=== PATIENT | male | born 1955 | race Caucasian/White ===

== ENCOUNTER 2019-03-25 07:09 | Outpatient (CLI) | payer MEDICARE, SELFPAY ==
[2019-03-25 08:12] LABS: HCT 46.9 % (40.0-50.0); HGB 15.9 g/dL (13.5-17.5); Mean Corp. HGB Concentration 33.9 g/dL (32.0-36.0); Mean Corpuscular Hemoglobin 28.6 pg (27.0-33.0); Mean Corpuscular Volume 84.4 fL (80-95); Mean Platelet Volume 10.7 fL (8.0-11.0); Platelet Count 215 x1000/uL (130-400); RBC 5.56 m/cumm (4.50-6.00); RBC Distribution Width 14.3 % (11.8-14.1); White Blood Cell Count 6.39 k/cumm (4.4-10.8)
[2019-03-25 08:58] LABS: ALT 22 U/L (12-78); AST 15 U/L (15-37); Alkaline Phosphatase 81 U/L (46-116); Anion Gap 9.6 mmol/L (3-11); BUN 23 mg/dL (7-18); Bilirubin, Total 0.7 mg/dL (0.2-1.0); CO2 30.4 mmol/L (21.0-32.0); CREATININE 1.03 mg/dL (0.70-1.30); Chloride 101 mmol/L (98-107); Cholesterol 154 mg/dL (50-200); Glucose 122 mg/dL (70-100); HDL Cholesterol 57 mg/dL (40-60); LDL CHOLESTEROL 84 mg/dL (<100); Potassium 3.8 mmol/L (3.5-5.1); Sodium 141 mmol/L (136-145); Total Protein 6.9 g/dL (6.4-8.2); Triglyceride 42 mg/dL (30-150)
== END 2019-03-25 07:29 ==
PROVIDERS: PCP Nurse Practitioner; Visit Provider Nurse Practitioner
DX: E66.3 Overweight; I10 Essential (primary) hypertension; E78.5 Hyperlipidemia, unspecified; R73.01 Impaired fasting glucose
CPT/HCPCS: 36415; 80053; 80061; 83721; 85027

== ENCOUNTER 2020-08-23 01:19 | Outpatient (CLI) | payer MEDICARE, SELFPAY ==
[2020-08-23 16:01] LABS: ALT 21 U/L (16-63); AST 15 U/L (15-37); Albumin 4.1 g/dL (3.4-5.0); Alkaline Phosphatase 98 U/L (46-116); Anion Gap 4.7 mmol/L (3-11); BUN 16 mg/dL (7-18); Bilirubin, Total 0.7 mg/dL (0.2-1.0); CO2 31.3 mmol/L (21.0-32.0); Calcium 8.7 mg/dL (8.5-10.1); Calculated LDL 78 mg/dL (<100); Chloride 102 mmol/L (98-107); Cholesterol 149 mg/dL (<200); Glucose 90 mg/dL (74-106); HDL Cholesterol 58 mg/dL (40-60); Potassium 3.7 mmol/L (3.5-5.1); Sodium 138 mmol/L (136-145); Total Protein 6.8 g/dL (6.4-8.2); Triglyceride 67 mg/dL (<150)
== END 2020-08-23 01:39 ==
PROVIDERS: PCP Nurse Practitioner; Visit Provider Nurse Practitioner
DX: E78.5 Hyperlipidemia, unspecified (principal); I10 Essential (primary) hypertension
CPT/HCPCS: 36415; 80053; 80061

== ENCOUNTER 2021-10-24 02:12 | Outpatient (CLI) | payer MEDICARE, SELFPAY ==
[2021-10-24 15:41] LABS: ALT 22 U/L (16-63); AST 14 U/L (15-37); Albumin 4.3 g/dL (3.4-5.0); Alkaline Phosphatase 103 U/L (46-116); BUN 21 mg/dL (7-18); CREATININE 1.1 mg/dL (0.70-1.30); Calcium 9.4 mg/dL (8.5-10.1); Calculated LDL 90 mg/dL (<100); Chloride 100 mmol/L (98-107); Cholesterol 164 mg/dL (<200); Glucose 96 mg/dL (74-106); HDL Cholesterol 63 mg/dL (40-60); Potassium 3.5 mmol/L (3.5-5.1); Sodium 140 mmol/L (136-145); Total Protein 7.3 g/dL (6.4-8.2); Triglyceride 56 mg/dL (<150)
== END 2021-10-24 02:13 | disposition home or self-care (01) ==
LOC: LBO 02:12
PROVIDERS: PCP Nurse Practitioner; Visit Provider Nurse Practitioner
DX: I10 Essential (primary) hypertension; R73.01 Impaired fasting glucose
CPT/HCPCS: 36415; 80053; 80061; 83036

== ENCOUNTER 2021-11-19 09:05 | Outpatient (CLI) | payer MEDICARE, OTHER, SELFPAY ==
--- NOTE | 2021-11-19 09:00 | RT.EKG_ITS ---
APPROVED REPORT Exam: Resting ECG Reason for Exam: irregular heart rate Patient Location: O HR:84 bpm ECG Measurements Heart Rate 84 AXIS OK [id number] P [id number] QRSd 105 QRS -57 QT 393 T 64 QTc 466 Conclusion Atrial fibrillation...V-rate 71-100, irreg A-activity LAD, consider left anterior fascicular block...axis(240,-40), S>R II III aVF
== END 2021-11-19 09:06 | disposition home or self-care (01) ==
LOC: DI.KIM 09:06
PROVIDERS: PCP Nurse Practitioner; Visit Provider Nurse Practitioner
DX: I49.8 Other specified cardiac arrhythmias (principal); I48.91 Unspecified atrial fibrillation; I44.4 Left anterior fascicular block
CPT/HCPCS: 93010

== ENCOUNTER 2021-12-25 01:11 | Outpatient (CLI) | payer MEDICARE, OTHER, SELFPAY ==
--- NOTE | 2021-12-25 07:30 | DI.US_ITS ---
APPROVED REPORT EXAM: Comprehensive 2D, Doppler, and color-flow Echocardiogram Patient Location: Out-Patient Accounts Clerk: Tara Doyle RDCS (AE) Indications: New A Fib Other Information Study Quality: Adequate Conclusion Normal left ventricular wall thickness and chamber size. Estimated ejection fraction is 60 to 65%. Wall motion is normal Normal right ventricular size and systolic function Both atria are moderately dilated Sclerotic trileaflet aortic valve with trace regurgitation Mildly thickened mitral leaflets, mild mitral regurgitation Normal tricuspid valve with trace to mild regurgitation. Estimated right ventricular systolic pressu re is 29 mmHg Dilated ascending aorta measuring 4.48 cm Wall motion Left Ventricle The left ventricle is normal size. The left ventricular systolic function is normal. The left ventric ular ejection fraction is within the normal range. There is normal left ventricular wall thickness. T here is normal LV segmental wall motion. There is no ventricular septal defect visualized. LVEF is 60 -65%. Right Ventricle The right ventricle is normal size. The right ventricular systolic function is normal. The RVSP is 29 .1mmHg. Atria Left atrium is moderately dilated. Right atrium is moderately dilated. The interatrial septum is inta ct with no evidence for an atrial septal defect. Aortic Valve The Aortic valve is sclerotic. Aortic valve is trileaflet. There is no aortic valvular stenosis. Trac e aortic regurgitation. Mitral Valve Mitral valve leaflets are mildly thickened. No evidence of mitral valve stenosis. Mild mitral regurgi tation. Tricuspid Valve The tricuspid valve is normal in structure. There is no tricuspid valve stenosis. Trace to mild tricu spid regurgitation. Pulmonic Valve The pulmonary valve is normal in structure. There is no pulmonic valvular stenosis. There is no pulmo james valvular regurgitation. Great Vessels Aortic root is mildly dilated. The ascending aorta is dilated.4.48 cm Aortic arch is not well visuali zed. IVC is normal in size and collapses >50% with inspiration. Pericardium There is no pericardial effusion. 2D Dimensions IVSD d PLAX 1.21 cm M: 0.6-1.2 LV Vol A2C d MOD 130.6 mL LVPW d PLAX 1.21 cm M: 0.6 - 1.2 LV Vol A4C d MOD 122.1 mL LVID d PLAX 4.45 cm M: 4.2 - 5.8 LA vol/ BSA A2C s A-L 48.1 mL/m2 LVDs 3.00 cm M: 2.5 - 4.0 LA vol/ BSA A4C s A-L 35.1 mL/m2 Ao Root d 3.92 cm M: 3.1 - 3.7 LA Vol/ BSA Biplane s A-L 42.5 mL/m2 RA Area A4C 21.87 cm2 LA Area A4C s MOD 24.92 cm2 RA Vol/ BSA A4C s A-L 31.2 mL/m2 LA Area A2C s MOD 30.15 cm2 Ao Asc Diam d 4.48 cm M: 2.6 - 3.4 LV EF A4C MOD 59.8 % LV EF Teichholz 60.4 % LV EF A2C MOD 59.4 % LVEF (Ventura's) 58.92 % M: 52 - 72 LV EF Biplane MOD 58.9 % LV Volume 91.03 mL M: 62 - 150 SV 74.52 mL LV Volume Index 40.10 mL/m2 M: 34 - 74 SV Index 32.75 mL/m2 LV Vol Biplane MOD 126.5 mL FS 32.05 % M-Mode TAPSE 2.57 cm (M/F) >1.7 LV Diastology MV E' medial 0.127 (>0.07 m/s) MV E Vmax 1.26 (0.4-1.3 m/s) LV E/e MED 9.85 (<14) MV E' lateral 0.135 (>0.1 m/s) LV E/e LAT 9.30 (<14) MV E/E' medial 9.90 MV E/E' lateral 9.32 Aortic Valve LVOT Area 4.28 cm2 AoV Area Vmax 3.72 cm2 LVOT Vmax 1.08 m/s AoV Area/ BSA (Vmax) 1.64 cm2/m2 LVOT Mean Kenton. 0.64 m/s CRISTAL Mean Kenton. 2.97 cm2 LVOT Peak Grad 4.6 mmHg CRISTAL Mean Kenton. Index 1.30 cm2/m2 LVOT Mean Grad 2.0 mmHg AR DT 2444 msec LVOT VTI 0.190 m AR PHT 709 msec LVOT Diam s 2.30 cm AoV Vmax 1.24 m/s Velocity Ratio 0.87 AoV Mean Kenton. 0.93 m/s AoV Peak Grad 6.1 mmHg LVOT SV 81.28 mL AoV Mean Grad 3.7 mmHg AoV VTI 0.223 m AoV Area VTI 3.65 cm2 AoV Area/ BSA (VTI) 1.60 cm/m2 Mitral Valve MV DT 182 (160-240 msec) MV PHT 53 msec MV Area PHT 4.18 cm2 MV VTI 0.215 m MV Area VTI 3.78 (4.0-6.0 cm2) Pulmonary Valve PV Vmax 1.21 (0.5-1.5 m/s) RVOT Peak Gr. 2.75 mmHg PV Peak Grad 5.9 mmHg RVOT Mean Gr. 1.35 mmHg PV Mean Grad 3.0 mmHg RVOT VTI 0.143 m PV VTI 0.215 m RVOT Vmax 0.83 m/s Tricuspid Valve TR Peak Grad 26.1 mmHg TR Vmax 2.55 m/s RA Pressure 3.00 mmHg RVSP (TR) 29.1 mmHg
== END 2021-12-25 01:31 ==
PROVIDERS: PCP Nurse Practitioner; Visit Provider Nurse Practitioner
DX: I48.91 Unspecified atrial fibrillation (principal); I35.8 Other nonrheumatic aortic valve disorders; I08.1 Rheumatic disorders of both mitral and tricuspid valves; I77.810 Thoracic aortic ectasia
CPT/HCPCS: 93306; 93225

== ENCOUNTER 2021-12-25 02:20 | Outpatient (RCR) | payer MEDICARE, OTHER, SELFPAY ==
--- NOTE | 2021-12-25 11:30 | HOLTER_ITS ---
APPROVED REPORT Conclusion This was a 48-hour Holter monitor ordered for atrial fibrillation Predominant rhythm was atrial fibrillation with an average heart rate of 78. Minimum was 53, maximum 144 A total of 7 isolated premature ventricular contractions were seen There was no high-grade AV block, no pauses greater than 3 seconds No patient symptoms were reported
== END 2022-01-14 23:59 | disposition home or self-care (01) ==
LOC: RT 02:20
PROVIDERS: PCP Nurse Practitioner; Visit Provider Nurse Practitioner
DX: I48.91 Unspecified atrial fibrillation (principal); I48.92 Unspecified atrial flutter; I49.3 Ventricular premature depolarization
CPT/HCPCS: 93227; 93225; 93226

== ENCOUNTER 2022-01-10 08:56 | Outpatient (CLI) | payer MEDICARE, OTHER, SELFPAY ==
--- NOTE | 2022-01-10 08:45 | RT.EKG_ITS ---
APPROVED REPORT Exam: Resting ECG Reason for Exam: afib Patient Location: O HR:79 bpm ECG Measurements Heart Rate 79 AXIS NJ [id number] P [id number] QRSd 100 QRS -59 QT 389 T 33 QTc 447 Conclusion Atrial fibrillation...V-rate 56- 93, irreg A-activity Left anterior fascicular block...axis(240,-40), init forces inf
== END 2022-01-10 08:57 | disposition home or self-care (01) ==
LOC: DI.CARD 08:57
PROVIDERS: PCP Nurse Practitioner; Visit Provider Internal Medicine Cardiovascular Disease
DX: I48.91 Unspecified atrial fibrillation (principal); R94.31 Abnormal electrocardiogram [ECG] [EKG]; I44.4 Left anterior fascicular block
CPT/HCPCS: 93010

== ENCOUNTER → 2022-01-10 10:51 | Outpatient (BNVA) | payer MEDICARE, OTHER, SELFPAY | PROVIDERS: PCP Nurse Practitioner; Referring Provider Nurse Practitioner; Visit Provider Internal Medicine Cardiovascular Disease | DX: I10 Essential (primary) hypertension (principal); I48.91 Unspecified atrial fibrillation | CPT/HCPCS: 93005; 99203 ==

== ENCOUNTER 2022-09-09 03:01 | Outpatient (CLI) | payer MEDICARE, OTHER, SELFPAY ==
[2022-09-09 08:15] LABS: HCT 48.9 % (40.0-50.0); HGB 16.8 g/dL (13.5-17.5); MCH 28.7 pg (27.0-33.0); MCHC 34.4 % (32.0-36.0); MCV 84 fL (80-95); MPV 9.9 fL (8.0-11.0); Platelet Count 221 10^3/uL (130-400); RBC 5.85 10^6/uL (4.36-5.78); RDW 13.6 % (11.8-14.1); WBC 7.24 10^3/uL (4.4-10.8)
[2022-09-09 08:43] LABS: ALT 25 U/L (16-63); AST 19 U/L (15-37); Albumin 3.9 g/dL (3.4-5.0); Alkaline Phosphatase 116 U/L (46-116); Anion Gap 6.8 mmol/L (3-11); BUN 19 mg/dL (7-18); Bilirubin, Total 0.9 mg/dL (0.2-1.0); CO2 31.2 mmol/L (21.0-32.0); CREATININE 1.1 mg/dL (0.70-1.30); Calcium 9.3 mg/dL (8.5-10.1); Calculated LDL 74 mg/dL (<100); Chloride 104 mmol/L (98-107); Cholesterol 135 mg/dL (<200); Estimated GFR 72.67 (mL/min/1.73m2); Glucose 128 mg/dL (74-106); HDL Cholesterol 55 mg/dL (40-60); Potassium 3.4 mmol/L (3.5-5.1); Sodium 142 mmol/L (136-145); Total Protein 7.4 g/dL (6.4-8.2); Triglyceride 34 mg/dL (<150)
== END 2022-09-09 03:02 | disposition home or self-care (01) ==
LOC: LBO 03:01
PROVIDERS: PCP Nurse Practitioner; Visit Provider Nurse Practitioner
DX: E78.5 Hyperlipidemia, unspecified (principal); I10 Essential (primary) hypertension; R73.03 Prediabetes; I48.91 Unspecified atrial fibrillation
CPT/HCPCS: 36415; 80053; 80061; 85027

== ENCOUNTER → 2023-01-13 10:27 | Outpatient (BNVA) | payer MEDICARE, OTHER, SELFPAY | PROVIDERS: PCP Nurse Practitioner; Referring Provider Nurse Practitioner; Visit Provider Internal Medicine Cardiovascular Disease | DX: I48.91 Unspecified atrial fibrillation (principal); I10 Essential (primary) hypertension; Z79.01 Long term (current) use of anticoagulants | CPT/HCPCS: 99213 ==

== ENCOUNTER 2023-03-20 01:43 | Outpatient (CLI) | payer MEDICARE, OTHER, SELFPAY ==
[2023-03-20 09:45] LABS: Hemoglobin A1C 6.1 % (<5.7)
[2023-03-20 21:24] LABS: PSA, Screening 6.1 ng/mL (<=4.5)
== END 2023-03-20 01:44 | disposition home or self-care (01) ==
LOC: LBO 01:44
PROVIDERS: PCP Nurse Practitioner; Visit Provider Nurse Practitioner
DX: R97.20 Elevated prostate specific antigen [PSA] (principal); Z12.5 Encounter for screening for malignant neoplasm of prostate; R73.03 Prediabetes; I10 Essential (primary) hypertension
CPT/HCPCS: 36415; 84153; 83036

== ENCOUNTER → 2023-05-01 10:39 | Outpatient (BNVA) | payer MEDICARE, OTHER, SELFPAY | PROVIDERS: PCP Nurse Practitioner; Referring Provider Nurse Practitioner; Visit Provider Nurse Practitioner Gerontology | DX: R97.20 Elevated prostate specific antigen [PSA] (principal) | CPT/HCPCS: 99203 ==

== ENCOUNTER 2023-08-28 17:47 | Outpatient (REF) | payer MEDICARE, OTHER, SELFPAY ==
[2023-08-28 19:06] LABS: Abs Immature Grans 0.04 10^3/uL (0.0-0.06); Absolute Basophil Count 0.07 10^3/uL (0.0-0.2); Absolute Eosinophil Count 0.08 10^3/uL (0.0-0.7); Absolute Lymphocyte Count 1.61 10^3/uL (1.2-3.4); Absolute Monocyte Count 0.71 10^3/uL (0.1-0.8); Absolute Neutrophil Count 5.44 10^3/uL (1.2-6.7); Basophils % 0.9; HCT 48.2 % (40.0-50.0); HGB 16.3 g/dL (13.5-17.5); Immature Grans % 0.5; Lymphocytes % 20.3; MCH 28.1 pg (27.0-33.0); MCHC 33.8 % (32.0-36.0); MCV 83 fL (80-95); MPV 10.2 fL (8.0-11.0); Monocytes % 8.9; Neutrophils % 68.4; Platelet Count 234 10^3/uL (130-400); RBC 5.81 10^6/uL (4.36-5.78); RDW 14.1 % (11.8-14.1); RDW-SD 42.5 fL; WBC 7.95 10^3/uL (4.4-10.8)
[2023-08-28 19:24] LABS: ALT 25 U/L (16-63); AST 15 U/L (15-37); Albumin 4.2 g/dL (3.4-5.0); Alkaline Phosphatase 114 U/L (46-116); Anion Gap 9.7 mmol/L (3-11); BUN 16 mg/dL (7-18); Bilirubin, Total 0.9 mg/dL (0.2-1.0); CO2 28.3 mmol/L (21.0-32.0); CREATININE 0.9 mg/dL (0.70-1.30); Calcium 9.7 mg/dL (8.5-10.1); Calculated LDL 75 mg/dL (<100); Chloride 102 mmol/L (98-107); Cholesterol 147 mg/dL (<200); Estimated GFR 91.88 (mL/min/1.73m2); Glucose 97 mg/dL (74-106); HDL Cholesterol 63 mg/dL (40-60); Potassium 3.3 mmol/L (3.5-5.1); Sodium 140 mmol/L (136-145); Total Protein 7.3 g/dL (6.4-8.2); Triglyceride 46 mg/dL (<150)
[2023-08-28 20:28] LABS: Vitamin D 25 Total 29.6 ng/mL (30-100)
== END 2023-08-28 17:48 | disposition home or self-care (01) ==
LOC: NCHCN 17:47
PROVIDERS: Visit Provider Nurse Practitioner Family
DX: I10 Essential (primary) hypertension (principal); E78.5 Hyperlipidemia, unspecified; Z51.81 Encounter for therapeutic drug level monitoring; I48.91 Unspecified atrial fibrillation
CPT/HCPCS: 80053; 80061; 82306; 85025

== ENCOUNTER 2023-10-23 04:04 | Outpatient (CLI) | payer MEDICARE, OTHER, SELFPAY ==
[2023-10-23 22:10] LABS: PSA, Diagnostic 5.9 ng/mL (<=6.5)
== END 2023-10-23 04:05 | disposition home or self-care (01) ==
LOC: LBO 04:05
PROVIDERS: Visit Provider Nurse Practitioner Gerontology
DX: R97.20 Elevated prostate specific antigen [PSA] (principal)
CPT/HCPCS: 36415; 84153

== ENCOUNTER → 2023-10-30 15:04 | Outpatient (BNVA) | payer MEDICARE, OTHER, SELFPAY | PROVIDERS: Referring Provider Nurse Practitioner; Visit Provider Nurse Practitioner Gerontology | DX: N40.1 Benign prostatic hyperplasia with lower urinary tract symptoms (principal); R97.20 Elevated prostate specific antigen [PSA] | CPT/HCPCS: 99213 ==

== ENCOUNTER 2023-11-27 13:26 | Outpatient (REF) | payer MEDICARE, OTHER, SELFPAY ==
[2023-11-27 16:48] LABS: Hemoglobin A1C 5.7 % (<5.7)
[2023-11-27 17:12] LABS: BUN 19 mg/dL (7-18); CREATININE 1.2 mg/dL (0.70-1.30); Calcium 9.6 mg/dL (8.5-10.1); Chloride 105 mmol/L (98-107); Estimated GFR 65.06 (mL/min/1.73m2); Glucose 184 mg/dL (74-106); Sodium 141 mmol/L (136-145)
== END 2023-11-27 13:27 | disposition home or self-care (01) ==
LOC: NCHCN 13:26
PROVIDERS: Visit Provider Nurse Practitioner Family
DX: R73.03 Prediabetes (principal); I10 Essential (primary) hypertension
CPT/HCPCS: 80048; 83036

== ENCOUNTER → 2024-01-07 00:15 | Outpatient (CLI) | payer MEDICARE, OTHER, SELFPAY ==
--- NOTE | 2024-01-07 08:35 | DI.US_ITS ---
APPROVED REPORT EXAM: Comprehensive 2D, Doppler, and color-flow Echocardiogram Patient Location: Out-Patient Candy Decorator: Tara Doyle RDCS (AE) Indications: LV function, ascending aorta, HTN Other Information Study Quality: Good Conclusion Normal left ventricular wall thickness, chamber size and systolic function EF is 60%, wall motion is normal Mildly dilated left atrium There is no sigificant structural valvular disease Mildly dilated ascending aorta 3.78 cm Wall motion Left Ventricle The left ventricle is normal size. The left ventricular systolic function is normal. The left ventric ular ejection fraction is within the normal range. There is normal left ventricular wall thickness. T here is normal LV segmental wall motion. There is no ventricular septal defect visualized. LVEF is 60 %. Right Ventricle The right ventricle is normal size. The right ventricular systolic function is normal. Atria Left atrium is mildly dilated. The right atrium size is normal. The interatrial septum is intact with no evidence for an atrial septal defect. Aortic Valve Aortic valve is trileaflet. There is no aortic valvular stenosis. No aortic regurgitation is present . Mitral Valve The mitral valve is normal in structure. No evidence of mitral valve stenosis. Mild mitral regurgitat ion. Tricuspid Valve The tricuspid valve is normal in structure. There is no tricuspid valve stenosis. Mild tricuspid regu rgitation. The RVSP is 22.9 mmHg. Pulmonic Valve The pulmonary valve is normal in structure. There is no pulmonic valvular stenosis. Trace to mild pul cyn regurgitation. Great Vessels Aortic root is mildly dilated. The ascending aorta is mildly dilated. Aortic arch is normal in sylvester david. IVC is normal in size and collapses >50% with inspiration. Pericardium There is no pericardial effusion. 2D Dimensions IVSD d PLAX 1.20 cm M: 0.6-1.2 Ao Root d 4.16 cm M: 3.1 - 3.7 LVPW d PLAX 1.21 cm M: 0.6 - 1.2 Ao Asc Diam d 3.78 cm M: 2.6 - 3.4 LVID d PLAX 4.79 cm M: 4.2 - 5.8 LVDs 3.17 cm M: 2.5 - 4.0 LV EF Teichholz 62.8 % FS 33.95 % LV EDV (Teich) 107.2 mL LV ESV (Teich) 39.9 mL M-Mode TAPSE 2.97 cm (M/F) >1.7 Auto EF LV EDV A4C 130.6 mL LV EDV A2C 125.9 mL LV EDV BP 128.7 mL LV ESV A4C 48.4 mL LV ESV A2C 53.2 mL LV ESV BP 51.2 mL LVEF(%) A4C 63.0 % LVEF(%) A2C 57.7 % LVEF(%) BP 60.2 % LV SV A4C 82.3 ml LV SV A2C 72.7 ml LV SV BP 77.5 ml LV CO A4C 7.4 L/min LV CO A2C 5.5 L/min LV CO BP 6.4 L/min HR A4C 89.56 BPM HR A2C 75.63 BPM LV EDV Index (BP) LV Strain Long Pk Overal Avg (s) 16.34 LA Volume LA Length A4C 5.8 cm LA Length A2C 6.8 cm LA Area A4C s 25.60 cm2 LA Area A2C s 29.58 cm2 LA Vol A4C A-L 95.88 mL LA Vol A2C A-L 108.72 mL LA Vol Biplane A-L 110.8 mL LA Vol/BSA A4C A-L LA Vol/BSA A2C A-L LA Vol/BSA BP A-L 49.0 mL/m2 LA Vol A4C MOD 89.1 mL LA Vol A2C MOD 102.8 mL LA Vol BP MOD 103.7 mL RA Volume RA Area A4C 18.5 cm2 RA ESV A4C (A-L) 50.0mL RA Vol/BSA A4C A-L RA Length A4C 5.8 cm RA ESV A4C (MOD) 48.4mL LV Diastology MV E' medial 0.118 (>0.07 m/s) MV E Vmax 1.19 (0.4-1.3 m/s) MV E/E' MED 10.14 (<14) MV E' lateral 0.134 (>0.1 m/s) MV E/E' LAT 8.92 (<14) MV E' Average 0.126 m/s MV E/E'(average) 9.49 Aortic Valve AoV Vmax 1.23 m/s LVOT Vmax 1.04 m/s AoV Peak Grad 6.0 mmHg LVOT Peak Grad 4.3 mmHg AoV Area (Vmax) 3.49 cm2 LVOT VTI 0.202 m AoV VTI 0.262 m LVOT Mean Grad 1.8 mmHg AoV Mean Kenton. 0.88 m/s LVOT SV 83.55 mL AoV Mean Grad 3.5 mmHg LVOT Diam s 2.25 cm AoV Area (VTI) 3.19 cm2 Velocity Ratio 0.85 Mitral Valve MV DT 217 (160-240 msec) MV Vmax TIPS 1.16 m/s MV Mean Grad 1.8 (<2mmHg) MV VTI 0.294 m Pulmonary Valve PV Vmax 0.88 (0.5-1.5 m/s) RVOT Vmax 0.74 m/s PV Peak Grad 3.1 mmHg RVOT Peak Gr. 2.2 mmHg PV Mean Kenton 0.65 m/s RVOT VTI 0.149 m PV Mean Grad 1.9 mmHg RVOT Mean Gr. 1.3 mmHg Tricuspid Valve RA Pressure 3.00 mmHg TR Vmax 2.23 m/s TV S' 0.17 m/s TR Peak Grad 19.8 mmHg RVSP (TR) 22.9 mmHg
== END ==
PROVIDERS: Visit Provider Internal Medicine Cardiovascular Disease
DX: I10 Essential (primary) hypertension (principal)
CPT/HCPCS: 93306

== ENCOUNTER 2024-01-15 10:29 | Outpatient (CLI) | payer MEDICARE, OTHER, SELFPAY ==
--- NOTE | 2024-01-15 10:30 | RT.EKG_ITS ---
APPROVED REPORT Exam: Resting ECG Reason for Exam: followup Patient Location: O HR:77 bpm ECG Measurements Heart Rate 77 AXIS SC [id number] P [id number] QRSd 102 QRS -72 QT 397 T 49 QTc 450 Conclusion Atrial fibrillation...? atrial activity Left anterior fascicular block...axis(240,-40), init forces inf Artifact in lead(s) I,II,aVR,aVL,V2
== END 2024-01-15 10:30 | disposition home or self-care (01) ==
LOC: DI.CARD 10:38
PROVIDERS: Visit Provider Internal Medicine Cardiovascular Disease
DX: I48.91 Unspecified atrial fibrillation (principal)
CPT/HCPCS: 93010

== ENCOUNTER → 2024-01-15 10:29 | Outpatient (BNVA) | payer MEDICARE, OTHER, SELFPAY | PROVIDERS: Visit Provider Internal Medicine Cardiovascular Disease | DX: I44.4 Left anterior fascicular block (principal); I48.21 Permanent atrial fibrillation; I10 Essential (primary) hypertension | CPT/HCPCS: 93005; 99213 ==

== ENCOUNTER 2024-04-22 05:03 | Outpatient (CLI) | payer MEDICARE, OTHER, SELFPAY ==
[2024-04-22 17:43] LABS: PSA, Diagnostic 6.2 ng/mL (<=6.5)
== END 2024-04-22 05:04 | disposition home or self-care (01) ==
LOC: LBO 05:04
PROVIDERS: Visit Provider Nurse Practitioner Gerontology
DX: R97.20 Elevated prostate specific antigen [PSA] (principal)
CPT/HCPCS: 36415; 84153

== ENCOUNTER 2024-08-27 19:55 | Outpatient (REF) | payer OTHER, SELFPAY ==
[2024-08-27 15:41] LABS: HCT 49.3 % (40.0-50.0); HGB 16.4 g/dL (13.5-17.5); MCH 28.5 pg (27.0-33.0); MCHC 33.3 % (32.0-36.0); MCV 86 fL (80-95); MPV 9.8 fL (8.0-11.0); Platelet Count 205 10^3/uL (130-400); RBC 5.75 10^6/uL (4.36-5.78); RDW 13.9 % (11.8-14.1); RDW-SD 43.6 fL; WBC 6.53 10^3/uL (4.4-10.8)
[2024-08-27 16:09] LABS: Anion Gap 6.2 mmol/L (3-11); BUN 25 mg/dL (7-18); CO2 29.8 mmol/L (21.0-32.0); CREATININE 1.1 mg/dL (0.70-1.30); Calcium 9.5 mg/dL (8.5-10.1); Chloride 105 mmol/L (98-107); Estimated GFR 71.77 (mL/min/1.73m2); Glucose 138 mg/dL (74-106); Potassium 4.5 mmol/L (3.5-5.1); Sodium 141 mmol/L (136-145); TSH (W/Ref FT4) 1.65 uIU/mL (0.36-3.74)
--- OUTSIDE RECORDS SUMMARY | 2024-08-27 19:57 | XMS_ITS | Encounter Summary ---
Author Organization [facility] Address [address] [place] [address] Care Team Providers Care Chemical Laboratory Scientist Name Role Phone Unavailable Primary Care Provider Unavailabl e Encounter Details Date Type Department Care Team (Late st Contact Info) Description 02/16/2008 Results Only [facility] - [facility] conversion [address] [place] [address] Jose Hsieh, DO [address] [facility] [address] [place], [place] [id number] Social History Tobacco Use Types Packs/Day Years Used Date Smoking Tobacco: Never Assessed Sex and Gender Information Value Date Recorded Sex Assigned at Not on file Gender Identity Not on file Sexual Orientation Not on file documented as of this encounter Plan of Treatment Not on file documented as of this encounter Procedures Procedure Name Priority Date/Time Associated Diagnosis Comments SURGICAL PATHOLOGY Routine 02/16/2008 0:00 EDT documented in this encounter Results * SURGICAL PATHOLOGY (02/16/2008 0:00 EDT) Pathology Report: SURGICAL PATHOLOGY REPORT Reports generated via electronic interface contain original data; however they are lacking the format of the original report. Caution should be taken when reading/interpreti ng unformatted reports. Name: ? ARIEL ROMERO ? Accession #: ? [id number] ? : ? 1955 (Age: 52) ??M ? Collect Date: ? 02/16/2008 ? Location: ? [facility] ? Receive Date: ? 02/17/2008 ? Provider: JOSE HSIEH DO Copy to: JOSTIN ARANDA MD ? Final Pathologic Diagnosis: ? Colon, ileocecal valve, biopsy: 1. ?Ileocecal valve with focal, superficial acute and chronic inflammation and surface hyperplastic changes. 2. ? No granulomas or dysplasia identified. Document reviewed and electronically signed by: Faby Vieyra MD Report ??Date: 02/19/2008 12:55 By the signature above, the attending physician certifies that he/she has personally conducted a gross and/or microscopic examination of the described specimens and rendered or confirmed the above diagnosis. Specimen(s) Received: ? Bx ileocecal valve Clinical History: ? Hx colon polyps Gross Description: ? Received in Hollande's fixative labelled Romero and bx ileocecal valve are two biopsies measuring 0.3 x 0.2 x 0.2 cm each. ??The specimens are submitted intact in one cassette. ??(Abhi Medel/[facility] End of Report STEFFANY SAEZ 02/16/2008 02/17/2008 9:2 2 EDT Jose Hsieh DO PATHOLOGY ORDER LADARIUS STEFFANY SAEZ [address] [place] [address] documented in this encounter Visit Diagnoses Not on filedocumented in this encounter
--- OUTSIDE RECORDS SUMMARY | 2024-08-27 19:57 | XMS_ITS | Encounter Summary ---
Author Organization [facility] Address [address] [place] [address] Care Team Providers Care Digital Project Manager Name Role Phone Mio Bro MD Primary Care Provider Booker claros Encounter Details Date Type Department Care Team (Latest Contact Info) Description 08/08/2015 10:33 EDT - 08/08/2015 23:59 EDT Hospital Encounter [address] [address] Unknown, Provider, Discharge Disposition: Home or Self Care Social History Tobacco Use Types Packs/Day Years Used Date Smoking Tobacco: Never Assessed Sex and Gender Information Value Date Recorded Sex Assigned at Not on file Gender Identity Not on file Sexual Orientation Not on file documented as of this encounter Discharge Disposition Disposition Code Departure Means Destination Home or Self Correction documented in this encounter Plan of Treatment Not on file documented as of this encounter Visit Diagnoses Not on filedocumented in this encounter Care Teams Digital Project Manager Relationship Specialty Start Date End Date Mio Bro MD PCP - General 06/18/13 documented as of this encounter
--- OUTSIDE RECORDS SUMMARY | 2024-08-27 19:57 | XMS_ITS | Encounter Summary ---
Author Organization [facility] Address [address] [place] [address] Care Team Providers Care Local Company Hazmat Driver Name Role Phone Unavailable Primary Care Provider Unavailabl e Encounter Details Date Type Department Care Team (Late st Contact Info) Description 12/18/2004 Results Only [facility] - Maple conversion [address] [place] [address] Jose Hsieh, DO [address] [facility] [address] [place], [place] [id number] Social History Tobacco Use Types Packs/Day Years Used Date Smoking Tobacco: Never Assessed Sex and Gender Information Value Date Recorded Sex Assigned at Not on file Gender Identity Not on file Sexual Orientation Not on file documented as of this encounter Plan of Treatment Not on file documented as of this encounter Procedures Procedure Name Priority Date/Time Associated Diagnosis Comments SURGICAL PATHOLOGY Routine 12/18/2004 0:00 EST documented in this encounter Results * SURGICAL PATHOLOGY (12/18/2004 0:00 EST) Pathology Report: SURGICAL PATHOLOGY REPORT Reports generated via electronic interface contain original data; however they are lacking the format of the original report. Caution should be taken when reading/interpreti ng unformatted reports. Name: ? ARIEL ROMERO ? Accession #: ? [id number] ? : ? 1955 (Age: 49) ??M ? Collect Date: ? 12/18/2004 ? Location: ? [facility] ? Receive Date: ? 12/18/2004 ? Provider: JOSE HSIEH DO Copy to: TAWNY FRY DO ? Final Pathologic Diagnosis: ? Colon, 40 cm, polypectomy: - Tubular adenoma. Document reviewed and electronically signed by: William Ramirez MD Report ??Date: 12/20/2004 17:34 By the signature above, the attending physician certifies that he/she has personally conducted a gross and/or microscopic examination of the described specimens and rendered or confirmed the above diagnosis. Specimen(s) Received: ? Polyp 40.0 cm Clinical History: ? Colonoscopy screening Gross Description: ? Received in Hollande's fixative labelled Romreo and polyp 40.0 cm are three clay-pink, irregular soft tissue fragments ranging from 0.2 x 0.2 x 0.2 cm to 0.6 x 0.5 x 0.4 cm. ??The specimen is entirely submitted in one cassette. ??(Jasiel Verdugo/[facility] End of Report STEFFANY SAEZ 12/18/2004 12/18/2004 14: 54 EST Jose Hsieh DO PATHOLOGY ORDER LADARIUS STEFFANY SAEZ [address] [place] [address] documented in this encounter Visit Diagnoses Not on filedocumented in this encounter
--- OUTSIDE RECORDS SUMMARY | 2024-08-27 19:57 | XMS_ITS | Encounter Summary ---
Author Organization [facility] [place] [address] [place] [address] Care Team Providers Care Trade Facilitator Name Role Phone Nafisa Donaldson Primary Care Provider [phone] Encounter Details Date Type Department Care Team (Latest Contact Info) Description 12/04/2023 Travel Social History Tobacco Use Types Packs/Day Years Used Date Smoking Tobacco: Former Sex and Gender Information Value Date Recorded Sex Assigned at Not on file Gender Identity Not on file Sexual Orientation Not on file documented as of this encounter Plan of Treatment Upcoming Encounters Date Type Department Care Team (Late st Contact Info) Description 01/24/2025 1:30 PM EDT Office Visit Dermatology at [place] [address] [place] [phone] Terrance Guadarrama MD [address], [place] [address] documented as of this encounter Visit Diagnoses Not on filedocumented in this encounter Care Teams Trade Facilitator Relationship Specialty Start Date End Date Nafisa Donaldson [address] [place] [address] PCP - General Family Medicine 12/04/23 documented as of this encounter
--- OUTSIDE RECORDS SUMMARY | 2024-08-27 19:57 | XMS_ITS | Encounter Summary ---
Author Organization [facility] [place] [address] Care Team Providers Care Residential Carpenter Name Role Phone Nafisa Donaldson Primary Care Provider [phone] Encounter Details Date Type Department Care Team (Latest Contact Info) Description 01/22/2024 Travel Social History Tobacco Use Types Packs/Day [...] 1:30 PM EDT Office Visit Dermatology at [place] [address] [place] [phone] Terrance Guadarrama MD [address], [place] [address] documented as of this encounter Visit Diagnoses Not on filedocumented in this encounter Care Teams Residential Carpenter Relationship Specialty Start Date End Date Nafisa Donaldson [address] [place] [address] PCP - General Family Medicine 12/04/23 documented as of this encounter
--- OUTSIDE RECORDS SUMMARY | 2024-08-27 19:57 | XMS_ITS | Clinical Summary ---
Author Organization [facility] Address [address] [place] [address] Care Team Providers Care Modeling Director Name Role Phone Mio Bro MD Primary Care Provider U saleemailneftali Encounters Date Type Department Care Team Description 08/27/2024 Lab Requisition [facility] Pathology & Laboratory Medicine - [address] [address] Outr Resulting Lab, Provider from Last 3 Months Social History Tobacco Use Types Packs/Day Years Used Date Smoking Tobacco: Never Assessed Interpersonal Safety Answer Date Record ed Physically Hurt Never 06/18/2020 Verbally Threaten Not on file 06/18/2020 Sex and Gender Information Value Date Recorded Sex Assigned at Not on file Gender Identity Not on file Sexual Orientation Not on file Plan of Treatment Health Maintenance Due Date Last Done Comments Hepatitis C Screen 1955 RSV Immunization ( o r 60+ Years) (1 - 1-dose 60+ series) 2013 Fall Risk Screening 2018 COVID-19 Vaccine (2022-24 season) 2023 Care Teams Modeling Director Relationship Specialty Start Date End Date Mio Bro MD PCP - General 06/18/13
--- OUTSIDE RECORDS SUMMARY | 2024-08-27 19:57 | XMS_ITS | Encounter Summary ---
Author Organization [facility] [place] [address] Care Team Providers Care Senior Producer Name Role Phone Nafisa Donaldson Primary Care Provider [phone] Encounter Details Date Type Department Care Team (Latest Contact Info) Description 12/04/2023 10:22 PM EST - 12/04/2023 11:59 PM EST Hospital Encounter [place] [phone] Discharge Disposition: Home Social History Tobacco Use Types Packs/Day Years Used Date Smoking Tobacco: Former Sex and Gender Information Value Date Recorded Sex Assigned at Not on file Gender Identity Not on file Sexual Orientation Not on file documented as of this encounter Medications at Time of Discharge Medication Sig Dispensed Refills Start Date End Date amLODIPine (Norvasc) 10 mg tablet Take 1 tablet by mouth daily. cholecalciferol, Vitamin D3, 50 mcg (2,000 unit) Capsule Take 1 capsule by mouth daily. potassium chloride ER (Klor-Con M) 20 mEq ER micro-encapsulated crystal tablet Take 20 mEq by mouth daily. rivaroxaban (Xarelto) 20 mg tablet Take 1 tablet by mouth daily. 08/28/2023 enalapriL (Vasotec) 20 mg tablet Take 40 mg by mouth daily. hydroCHLOROthiazide (Hydrodiuril) 50 mg tablet Take 50 mg by mouth daily. Vitamins-Lipotropics (LIPO-FLAVONOID PLUS) 200-100 mg Tab Take by mouth. lisinopril-hydrochloroth iazide (PRINZIDE;ZESTORETIC) 10-12.5 mg per tablet Take 1 tablet by mouth daily. aspirin 81 mg EC tablet Take 81 mg by mouth daily. 07/26/2024 documented as of this encounter Plan of Treatment Upcoming Encounters Date Type Department Care Team (Late st Contact Info) Description 01/24/2025 1:30 PM EDT Office Visit Dermatology at [place] [address] [place] [address] Terrance Guadarrama MD [address], [place] [address] documented as of this encounter Procedures Procedure Name Priority Date/Time Associated Diagnosis Comments SURGICAL PATHOLOGY REPORT Routine 12/04/2023 10:15 AM EST documented in this encounter Results * Surgical Pathology Report (12/04/2023 10:15 AM EST) Final Diagnosis [id number] ? Location: [facility] The signing pathologist has (i) examined the relevant preparation(s) for the specimen(s) and (ii) rendered or confirmed the diagnosis(es). . ?Surgical Pathology DIAGNOSIS Right nasal trigone, skin shave biopsy D&C: - ??Basal cell carcinoma, nodular type, present at the peripheral and deep specimen edges Electronically signed by: ?Fouzia KONG, Demond Ahmadi Verified: ??12/15/2023 10:48 ??Dermatopatholog ist Performed at: ??-[facility] [place] Dept. of Pathology, [place] [id number] [employer] Furn[employer] Operator: Kandy Guallpa MD, FCAP, ??CLIA Certificate: [id number] SPECIMEN(S) SUBMITTED A - R nasal trigone, shave D&C x 3 CLINICAL INFORMATION Pearly nodule; BCC/SCC SPECIMEN PROCESSING A - Labeled/Fixative: Patient demographics, formalin. Quantity/Size: ??Single, 1.5 x 0.4 x 0.4 cm. Tissue Description: Shave of a yellow-white, hyperkeratotic and crusted skin nodule. Sections/Processi ng: Inked, serially sectioned and entirely submitted in 2 cassettes as follows: ?A1: ??Tips ?A2: ??Body ??sns 12/15/2023 10:48 AM EST [facility] SPECIMEN FROM SKIN / Unknown 12/04/2023 10:15 AM EST 12/04/2023 10:15 AM EST Terrance Guadarrama MD PATHOLOGY/CYTOLOGY O RDERAREED [facility] [place] [address] [facility] [place] [address] documented in this encounter Visit Diagnoses Not on filedocumented in this encounter Care Teams Senior Producer Relationship Specialty Start Date End Date Nafisa Donaldson [address] [place] [address] PCP - General Family Medicine 12/04/23 documented as of this encounter
--- OUTSIDE RECORDS SUMMARY | 2024-08-27 19:57 | XMS_ITS | Encounter Summary ---
Author Organization [facility] Address [address] [place] [address] Care Team Providers Care Needle Polisher Name Role Phone Mio Bro MD Primary Care Provider Booker claros Encounter Details Date Type Department Care Team (Late st Contact Info) Description 05/15/2018 Results Only [facility]- [facility] [phone] Silverio Fry, DO [address] [place] [address] Social History Tobacco Use Types Packs/Day Years Used Date Smoking Tobacco: Never Assessed Sex and Gender Information Value Date Recorded Sex Assigned at Not on file Gender Identity Not on file Sexual Orientation Not on file documented as of this encounter Plan of Treatment Not on file documented as of this encounter Procedures Procedure Name Priority Date/Time Associated Diagnosis Comments SURGICAL PATHOLOGY Routine 05/15/2018 18 :11 EDT documented in this encounter Results * SURGICAL PATHOLOGY (05/15/2018 18:11 EDT) Pathology Report: SURGICAL PATHOLOGY REPORT Reports generated via electronic interface contain original data; however they are lacking the format of the original report. Caution should be taken when reading/interpret ing unformatted reports. Name: ? ARIEL ROMERO JR ? Accession #: ? [id number] ? : ? 1955 (Age: 63) ??M ? Collect Date: ? 05/15/2018 ? Location: ? [facility] ? Receive Date: ? 05/15/2018 ? Provider: SILVERIO FRY DO Copy to: DEANN LINO PILE DRIVING TECHNICIAN ? Final Pathologic Diagnosis: RECTUM, POLYP, BIOPSY: - ??Fragments of hyperplastic polyp. Document reviewed and electronically signed by: LAURA CASTILLO MD Report ??Date: 05/19/2018 10:53 By the signature above, the attending physician certifies that he/she has personally conducted a gross and/or microscopic examination of the described specimens and rendered or confirmed the above diagnosis. Specimen(s) Received: Rectal polyp Clinical History: Colorectal screening; clinical diagnosis code: ??Z12.11 Gross Description: ? Received in formalin labelled with proper patient identification (initials H, F) and 1 rectal polyp is a single pink-clay polypoid tissue (0.4 x 0.3 x 0.3 cm). The margin is inked blue. The specimen entirely submitted in 1. Dr. Corrigan 05/16/2018 10:43 AM End of Report [facility] 05/15/2018 18:1 1 EDT 05/15/2018 18:11 EDT Silverio Fry DO PATHOLOGY ORDERABLES [facility] [address] [place] [address] documented in this encounter Visit Diagnoses Not on filedocumented in this encounter Care Teams Needle Polisher Relationship Specialty Start Date End Date Mio Bro MD PCP - General 06/18/13 documented as of this encounter
--- OUTSIDE RECORDS SUMMARY | 2024-08-27 19:57 | XMS_ITS | Encounter Summary ---
Author Organization [facility] Address [address] [facility] [place] [address] Care Team Providers Care System Planning Engineer Name Role Phone KahlilorestesdesEstee Nafisa Primary Care Provider [phone] Encounter Details Date Type Department Care Team (Late st Contact Info) Description 12/12/2023 Telephone Dermatology at [address] [address] Maite Faulkner RN Social History Tobacco Use Types Packs/Day Years Used Date Smoking Tobacco: Former Sex and Gender Information Value Date Recorded Sex Assigned at Not on file Gender Identity Not on file Sexual Orientation Not on file documented as of this encounter Miscellaneous Notes * Telephone Encounter - Maite Faulkner RN - 12/12/2023 11:15 AM EST Patient called to see how he was doing since 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 Patientstated that the first night his nose was painful but since he has been doing well. He has his daughter changing the dressing and she is an RN and stated that it is healing well with out any signs or symptoms of infection. He stated that he has been staying home relaxing. Patient does have another pr ocedure scheduled for 12/22/2023 and reminded him of his appointment. documented in this encounter Plan of Treatment Upcoming Encounters Date Type Department Care Team (Late st Contact Info) Description 01/24/2025 1:30 PM EDT Office Visit Dermatology at [address] [place] [address] Terrance Guadarrama MD [address], [place] [address] documented as of this encounter Visit Diagnoses Not on filedocumented in this encounter Care Teams System Planning Engineer Relationship Specialty Start Date End Date Nafisa Donaldson [address] [place] [address] PCP - General Family Medicine 12/04/23 documented as of this encounter
--- OUTSIDE RECORDS SUMMARY | 2024-08-27 19:57 | XMS_ITS | Encounter Summary ---
Author Organization [facility] Address [address] [facility] [place] [address] Care Team Providers Care Director Business Development Name Role Phone Nafisa Donaldson Primary Care Provider [phone] Reason for Visit * Reason Comments Follow-up Encounter Details Date Type Department Care Team (Late st Contact Info) Description 12/25/2023 2:15 PM EST Procedure visit Dermatology at [address] [place] [address] Terrance Guadarrama MD [address] [facility], [facility]ULO A DERMATOLOGY [place], [place] [id number] Rhinophyma Social History Tobacco Use Types Packs/Day Years Used Date Smoking Tobacco: Former Sex and Gender Information Value Date Recorded Sex Assigned at Not on file Gender Identity Not on file Sexual Orientation Not on file documented as of this encounter Progress Notes * Terrance Guadarrama MD - 12/25/2023 2:15 PM EST Images from the original note were not included. Problem: Rhinophyma Filiberto follows up for a second in a series of treatment sessions for his rhinophyma. 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 The left nasal ala treated last visit is healing nicely. The photographs below show 2 before and 2 after pictures And after Assessment plan: Rhinophyma, extensive 1. Today site was anesthetized on the left nasal ala and left and using the cutting current and at times mixed current with a grounding pad, the area was sculpted back down to normal close to normal contours on the nasal tip and right side of his nose. 2. Patient tolerated well 3. Return to clinic in 1 month for repeat check 4. Wound care instructions and supplies given CC: Vicky LARSON documented in this encounter Plan of Treatment Upcoming Encounters Date Type Department Care Team (Late st Contact Info) Description 01/24/2025 1:30 PM EDT Office Visit Dermatology at [place] [address] [facility] [address] Terrance Guadarrama MD [address] [facility] [place] [address] documented as of this encounter Visit Diagnoses Diagnosis Rhinophyma Rosacea documented in this encounter Care Teams Director Business Development Relationship Specialty Start Date End Date Nafisa Donaldson [address] [place] [address] PCP - General Family Medicine 12/04/23 documented as of this encounter
--- OUTSIDE RECORDS SUMMARY | 2024-08-27 19:57 | XMS_ITS | Encounter Summary ---
Author Organization [facility] [place] [address] Care Team Providers Care Single Stroke Preformer Name Role Phone Nafisa Donaldson Primary Care Provider [phone] Reason for Visit * Reason Comments Follow-up 1 mo Encounter Details Date Type Department Care Team (Late st Contact Info) Description 01/22/2024 3:45 PM EST Office Visit Dermatology at [address] [phone] Terrance Guadarrama MD [address] [facility], [place] [address] Rhinophyma; History of basal cell carcinoma; History of SCC (squamous cell carcinoma) of skin Social History Tobacco Use Types Packs/Day Years Used Date Smoking Tobacco: Former Sex and Gender Information Value Date Recorded Sex Assigned at Not on file Gender Identity Not on file Sexual Orientation Not on file documented as of this encounter Progress Notes * Terrance Guadarrama MD - 01/22/2024 3:45 PM EST Images from the original note were not included. Problems: 1. Eyelid lesion of concern. 2. History of BCCA, right lateral canthus, October 2012. 3. 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 Things have healed beautifully and is very pleased. Physical examination reveals a pleasant 76-year-old gentleman whose extensive rhinophyma is healed beautifully. The BCC treatments sites present on the right nasal trigone is also healed well.. He has no evidence of SCC or BCC at the current at the above-noted prior treatment sites. Assessment plan: Rhinophyma nose 1. Wonderful healing following elective surgery. Patient and I both very pleased and I will follow along with him 2. Patient is currently on doxycycline prescribed by Nafisa Donaldson. Continue this 100 mg a day to prevent recurrence of rhinophyma. 3. Follow-up in 6 months for repeat check History of BCCA/SCCA's 1. Return to clinic in another 6 months for repeat check CC: Nafisa Donaldson. WEIGHT CALLER documented in this encounter Plan of Treatment Upcoming Encounters Date Type Department Care Team (Late st Contact Info) Description 01/24/2025 1:30 PM EDT Office Visit Dermatology at [place] [address] [place] [address] Terrance Guadarrama MD [address], [place] [address] documented as of this encounter Visit Diagnoses Diagnosis Rhinophyma Rosacea History of basal cell carcinoma Personal history of other malignant neoplasm of skin History of SCC (squamous cell carcinoma) of skin Personal history of other malignant neoplasm of skin documented in this encounter Care Teams Single Stroke Preformer Relationship Specialty Start Date End Date Nafisa Donaldson [address] [place] [address] PCP - General Family Medicine 12/04/23 documented as of this encounter
--- OUTSIDE RECORDS SUMMARY | 2024-08-27 19:57 | XMS_ITS | Encounter Summary ---
Author Organization [facility] Address One [facility] [place] [address] Care Team Providers Care Public Finance Specialist Name Role Phone KahlilorestesdesEstee Nafisa Primary Care Provider Encounter Details Date Type Department Care Team (Late st Contact Info) Description 12/15/2023 Telephone Dermatology at [address] [address] Maite Faulkner RN Social History Tobacco Use Types Packs/Day Years Used Date Smoking Tobacco: Former Sex and Gender Information Value Date Recorded Sex Assigned at Not on file Gender Identity Not on file Sexual Orientation Not on file documented as of this encounter Miscellaneous Notes * Telephone Encounter - Maite Faulkner RN - 12/15/2023 1:53 PM EST Patient called and informed of his pathology results. Patient had a shave biopsy D&C right nasal trigone on 12/04/2023. Diagnosis: Basal cell carcinoma. Per Dr. Guadarrama's recommendation no further treatment is needed and patient to follow up for his next scheduled treatment of his Rhinophyma on 12/22/2023. Patient informed and stated that he understood. Reminded patient of his appointment on 12/22/2023. documented in this encounter Plan of Treatment Upcoming Encounters Date Type Department Care Team (Late st Contact Info) Description 01/24/2025 1:30 PM EDT Office Visit Dermatology at [address] [address] Terrance Guadarrama MD [address], SHAMEKA A DERMATOLOGY [place], [place] [phone] documented as of this encounter Visit Diagnoses Not on filedocumented in this encounter Care Teams Public Finance Specialist Relationship Specialty Start Date End Date Nafisa Donaldson [address] [place] [address] PCP - General Family Medicine 12/04/23 documented as of this encounter
--- OUTSIDE RECORDS SUMMARY | 2024-08-27 19:57 | XMS_ITS | Encounter Summary ---
Author Organization [facility] Address [address] [place] [address] Care Team Providers Care Business Strategy Manager Name Role Phone Mio Aranda MD Primary Care Provider Booker claros Encounter Details Date Type Department Care Team (Late st Contact Info) Description 08/08/2015 Results Only [facility]- [facility] [phone] Nash Davey MD [address] [place] [phone] Social History Tobacco Use Types Packs/Day Years Used Date Smoking Tobacco: Never Assessed Sex and Gender Information Value Date Recorded Sex Assigned at Not on file Gender Identity Not on file Sexual Orientation Not on file documented as of this encounter Plan of Treatment Not on file documented as of this encounter Procedures Procedure Name Priority Date/Time Associated Diagnosis Comments SURGICAL PATHOLOGY Routine 08/08/2015 20 :22 EDT documented in this encounter Results * SURGICAL PATHOLOGY (08/08/2015 20:22 EDT) Pathology Report: SURGICAL PATHOLOGY REPORT Reports generated via electronic interface contain original data; however they are lacking the format of the original report. Caution should be taken when reading/interpret ing unformatted reports. Name: ? ARIEL ROMERO JR ? Accession #: ? [id number] ? : ? 1955 (Age: 60) ??M ? Collect Date: ? 08/08/2015 ? Location: ? [facility] ? Receive Date: ? 08/08/2015 ? Provider: NASH DAVEY MD Copy to: MIO ARANDA MD ? Final Pathologic Diagnosis: SOFT TISSUE OF LEFT FORHEAD, EXCISION: - Mature adipose tissue consistent with lipoma. - No evidence of malignancy. Document reviewed and electronically signed by: STAN FORTE MD Report ??Date: 08/10/2015 15:16 By the signature above, the attending physician certifies that he/she has personally conducted a gross and/or microscopic examination of the described specimens and rendered or confirmed the above diagnosis. Specimen(s) Received: Lipoma left forehead Clinical History: Lipoma Gross Description: ? Received in formalin labelled with proper patient identification (initials H, F) and lipoma left forehead is an unoriented portion of ovoid yellow-brown adipose tissue (41.4 g, 6.9 x 6.4 x 1.6 cm). The outer surface has a smooth, thin, translucent, and intact capsule. The outer surface is inked blue. The cut surface is yellow, homogenous, and glistening, with focal hemorrhage at the periphery. Stud Dairy Cattle Farmer sections are submitted as [address] Morris 08/09/2015 9:43 AM End of Report [facility] 08/08/2015 20:2 2 EDT 08/08/2015 20:22 EDT Nash Davey MD PATHOLOGY ORDERA REED [facility] [address] [place] [address] documented in this encounter Visit Diagnoses Not on filedocumented in this encounter Care Teams Business Strategy Manager Relationship Specialty Start Date End Date Mio Aranda MD PCP - General 06/18/13 documented as of this encounter
--- OUTSIDE RECORDS SUMMARY | 2024-08-27 19:57 | XMS_ITS | Encounter Summary ---
Author Organization [facility] [place] [address] Care Team Providers Care Flake Drier Name Role Phone Nafisa Donaldson Primary Care Provider [phone] Reason for Visit * Reason Comments Procedure Encounter Details Date Type Department Care Team (Late st Contact Info) Description 12/09/2023 2:15 PM EST Procedure visit Dermatology at [address] [place] [address] Terrance Guadarrama MD [address] [facility] [place] [address] Rhinophyma; History of basal cell carcinoma; History of SCC (squamous cell carcinoma) of skin Social History Tobacco Use Types Packs/Day Years Used Date Smoking Tobacco: Former Sex and Gender Information Value Date Recorded Sex Assigned at Not on file Gender Identity Not on file Sexual Orientation Not on file documented as of this encounter Progress Notes * Terrance Guadarrama MD - 12/09/2023 2:15 PM EST Problem: Rhinophyma Filiberto follows up for first in a series of treatment sessions for his rhinophyma. Physical examination again reveals extensive rhinophyma from both nasal ala and from the nasal tip Assessment plan: Rhinophyma, extensive 1. Today site was anesthetized on the left nasal ala and left and using the cutting current and at times admit mixed current with a grounding pad, the area was sculpted back down to normal close to normal contours on the left side of his nose. 2. Patient tolerated well 3. Return to clinic for a second session in the next 2 weeks or so. 4. Wound care instructions and supplies given CC: Vicky LARSON documented in this encounter Plan of Treatment Upcoming Encounters Date Type Department Care Team (Late st Contact Info) Description 01/24/2025 1:30 PM EDT Office Visit Dermatology at [place] [address] [place] [address] Terrance Guadarrama MD [address] [facility] [place] [address] documented as of this encounter Visit Diagnoses Diagnosis Rhinophyma Rosacea History of basal cell carcinoma Personal history of other malignant neoplasm of skin History of SCC (squamous cell carcinoma) of skin Personal history of other malignant neoplasm of skin documented in this encounter Care Teams Flake Drier Relationship Specialty Start Date End Date Nafisa Donaldson [address] [place] [address] PCP - General Family Medicine 12/04/23 documented as of this encounter
--- OUTSIDE RECORDS SUMMARY | 2024-08-27 19:57 | XMS_ITS | Referral Summary ---
Author Organization [facility] Address [address] [place] [address] Care Team Providers Care Winding Lathe Operator Name Role Phone Mio Bro MD Primary Care Provider U navailable Encounters Date Type Department Care Team Description 08/27/2024 Lab Requisition [facility] Pathology & Laboratory Medicine - [address] [address] Outr Resulting Lab, Provider from Last 3 Months Social History Tobacco Use Types Packs/Day Years Used Date Smoking Tobacco: Never Assessed Interpersonal Safety Answer Date Record ed Physically Hurt Never 06/18/2020 Verbally Threaten Not on file 06/18/2020 Sex and Gender Information Value Date Recorded Sex Assigned at Not on file Gender Identity Not on file Sexual Orientation Not on file Plan of Treatment Not on file Care Teams Winding Lathe Operator Relationship Specialty Start Date End Date Mio Bro MD PCP - General 06/18/13
--- OUTSIDE RECORDS SUMMARY | 2024-08-27 19:57 | XMS_ITS | Encounter Summary ---
Author Organization [facility] [place] [address] Care Team Providers Care Special Class Welder Name Role Phone Nafisa Donaldson Primary Care Provider [phone] Encounter Details Date Type Department Care Team (Latest Contact Info) Description 07/26/2024 Travel Social History Tobacco Use Types Packs/Day [...] 1:30 PM EDT Office Visit Dermatology at [place] [address] [place] [phone] Terrance Guadarrama MD [address] [place] [address] documented as of this encounter Visit Diagnoses Not on filedocumented in this encounter Care Teams Special Class Welder Relationship Specialty Start Date End Date Nafisa Donaldson [address] [place] [address] PCP - General Family Medicine 12/04/23 documented as of this encounter
--- OUTSIDE RECORDS SUMMARY | 2024-08-27 19:57 | XMS_ITS | Encounter Summary ---
Author Organization [facility] [place] [address] Care Team Providers Care Mechanical Systems Designer Name Role Phone Mio Bro MD Primary Care Provider + Reason for Visit * Reason Comments Skin Lesion Encounter Details Date Type Department Care Team (Late st Contact Info) Description 04/16/2012 4:15 PM EDT Office Visit Dermatology [address] [place] [address] Terrance Guadarrama MD [address], [place] [address] Basal cell carcinoma (Primary Dx) Social History Tobacco Use Types Packs/Day Years Used Date Smoking Tobacco: Former Sex and Gender Information Value Date Recorded Sex Assigned at Not on file Gender Identity Not on file Sexual Orientation Not on file documented as of this encounter Progress Notes * Terrance Guadarrama MD - 04/16/2012 5:22 PM EDT Clinical impression: BCCA, right lateral canthus. Size is 1 cm. Deep suture is 4-0 Vicryl. Surface suture is 5-0 Ethilon. Followup will be in one week for suture removal and biopsy results. Indications for surgery, possible adverse outcomes, and activity restrictions discussed. Informed verbal consent was obtained. The skin surface was prepared with 4% chlorhexidine and draped in the usual sterile manner. Local anesthesia with 1% lidocaine, 1:100,000 epinephrine, and 0.1 mEq per mL of bicarbonate. Using a #15 blade and 3-mm margins, an elliptical excision was carried out around the lesion. Undermining performed peripherally. Hemostasis with electrodesiccation. A layered closure performed with specimen to Pathology. Wound dressed, wound care reviewed. End length suture line was 4.5 cm. Followup in seven days for suture removal by Dr. Guadarrama in [facility]. Copy: Mio Bro M.D. Pathology Addendum per [facility] 04/22/12 : Basal Cell Carcinoma, margins clear documented in this encounter Procedure Notes * Provider, Scanning - 04/24/2012 1:30 PM EDTAssociated Order(s): SCAN DOC: SURGICAL PATHOLOGY documented in this encounter Plan of Treatment Upcoming Encounters Date Type Department Care Team (Late st Contact Info) Description 01/24/2025 1:30 PM EDT Office Visit Dermatology at [place] [address] [place] [address] Terrance Guadarrama MD [address] [place] [address] RD, [place] [address] documented as of this encounter Procedures Procedure Name Priority Date/Time Associated Diagnosis Comments SURGICAL PATHOLOGY SCAN 04/24/2012 1:30 PM EDT documented in this encounter Results * SCAN DOC: SURGICAL PATHOLOGY (04/24/2012 1:30 PM EDT) Narrative 04/24/2012 1:30 PM EDT Procedure Note Provider, Scanning - 04/24/2012 1:30 PM EDT Scanning Provider MEDIA MGR SCAN EXT O RDR/RSLT documented in this encounter Visit Diagnoses Diagnosis Basal cell carcinoma- Primary Basal cell carcinoma of skin, site unspecified documented in this encounter Care Teams Mechanical Systems Designer Relationship Specialty Start Date End Date Mio Bro MD [address] [place] [address] PCP - General 10/09/10 08/26/17 documented as of this encounter
--- OUTSIDE RECORDS SUMMARY | 2024-08-27 19:57 | XMS_ITS | Encounter Summary ---
Author Organization [facility] Address [address] [place] [address] Care Team Providers Care Membership Sales Advisor Name Role Phone Mio Bro MD Primary Care Provider Booker claros Encounter Details Date Type Department Care Team (Latest Contact Info) Description 05/15/2018 12:15 EDT - 05/15/2018 23:59 EDT Hospital Encounter [address] [address] Unknown, Provider, Discharge Disposition: Home or Self Care Social History Tobacco Use Types Packs/Day Years Used Date Smoking Tobacco: Never Assessed Sex and Gender Information Value Date Recorded Sex Assigned at Not on file Gender Identity Not on file Sexual Orientation Not on file documented as of this encounter Discharge Disposition Disposition Code Departure Means Destination Home or Self Intermediate documented in this encounter Plan of Treatment Not on file documented as of this encounter Visit Diagnoses Not on filedocumented in this encounter Care Teams Membership Sales Advisor Relationship Specialty Start Date End Date Mio Bro MD PCP - General 06/18/13 documented as of this encounter
--- OUTSIDE RECORDS SUMMARY | 2024-08-27 19:57 | XMS_ITS | Encounter Summary ---
Author Organization [facility] Address [address] [place] [address] Care Team Providers Care Production Team Manager Name Role Phone Mio Bro MD Primary Care Provider Booker claros Encounter Details Date Type Department Care Team (Late st Contact Info) Description 04/22/2024 Lab Requisition [facility] Pathology & Laboratory Medicine - [facility] [address] [place] [address] Outr Resulting Lab, Provider Social History Tobacco Use Types Packs/Day Years [...] Procedure Name Priority Date/Time Associated Diagnosis Comments PSA TOTAL, DIAGNOSTIC Routine 04/22/2024 8:30 EDT documented in this encounter Results * PSA TOTAL, DIAGNOSTIC (04/22/2024 8:30 EDT) PSA 6.2 <=6.5 ng/mL 04/22/2024 17:38 EDT [facility] Blood VENOUS BLOOD / Unknown 04/22/2024 8:30 EDT 04/22/2024 16:50 EDT Narrative [facility] - 04/22/2024 17:38 EDT NOTE: Serum PSA concentration should not be interpreted as absolute evidence for the presence or absence of malignant disease. Assayed on Siemens ADVIA Centaur XPT using chemiluminescent technology.??Values obtained by using different assay methods cannot be used interchangeably. Provider Outr Resulting Lab CHEMISTRY & BLOOD GAS ORDERABLES [facility] [address] [place] [address] documented in this encounter Visit Diagnoses Not on filedocumented in this encounter Care Teams Production Team Manager Relationship Specialty Start Date End Date Mio Bro MD PCP - General 06/18/13 documented as of this encounter
--- OUTSIDE RECORDS SUMMARY | 2024-08-27 19:57 | XMS_ITS | Encounter Summary ---
Author Organization [facility] Address [address] [place] [address] Care Team Providers Care Manager Learning Name Role Phone Mio Bro MD Primary Care Provider Booker claros Encounter Details Date Type Department Care Team (Late st Contact Info) Description 03/20/2023 Lab Requisition [facility] Pathology & Laboratory Medicine - [facility] [address] [place] [address] Outr Resulting Lab, Provider Social History Tobacco [...] Associated Diagnosis Comments PSA TOTAL, DIAGNOSTIC Routine 03/20/2023 9:10 EDT documented in this encounter Results * (ABNORMAL) PSA TOTAL, DIAGNOSTIC (03/20/2023 9:10 EDT) PSA 6.1(H) <=4.5 ng/mL 03/20/2023 21:21 EDT [facility] Blood VENOUS BLOOD / Unknown 03/20/2023 9:10 EDT 03/20/2023 17:24 EDT Narrative [facility] - 03/20/2023 21:21 EDT NOTE: Serum PSA concentration should not be interpreted as absolute evidence for the presence or absence of malignant disease. Assayed on Siemens ADVIA Centaur XPT using chemiluminescent technology.??Values obtained by using different assay methods cannot be used interchangeably. Provider Outr Resulting Lab CHEMISTRY & BLOOD GAS ORDERABLES [facility] [address] [place] [address] documented in this encounter Visit Diagnoses Not on filedocumented in this encounter Care Teams Manager Learning Relationship Specialty Start Date End Date Mio Bro MD PCP - General 06/18/13 documented as of this encounter
--- OUTSIDE RECORDS SUMMARY | 2024-08-27 19:57 | XMS_ITS | Encounter Summary ---
Author Organization [facility] [place] [address] Care Team Providers Care Ed Tech Name Role Phone Mio Bro MD Primary Care Provider + Reason for Visit * Reason Comments Skin Check Encounter Details Date Type Department Care Team (Late st Contact Info) Description 07/16/2013 9:30 AM EDT Office Visit Dermatology [address] [place] [address] Terrance Guadarrama MD [address], [place] [address] Squamous cell carcinoma (Primary Dx); History of basal cell carcinoma Social History Tobacco Use Types Packs/Day Years Used Date Smoking Tobacco: Former Sex and Gender Information Value Date Recorded Sex Assigned at Not on file Gender Identity Not on file Sexual Orientation Not on file documented as of this encounter Progress Notes * Terrance Guadarrama MD - 07/16/2013 9:58 AM EDT Problems: 1. Left cheek lesion. 2. History of BCCA, right lateral canthus, October 2012. Filiberto follows up after last being seen a year ago in April. He is referred back today by Dr. Bro regarding a lesion now on the left cheek. 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 Physical examination reveals a pleasant, 58-year-old gentleman who has a hyperkeratotic, 1-cm nodule on the left cheek with some slight underlying induration. It is concerning for an early SCCA. He has a single actinic on the right malar prominence. There is no evidence of recurrent BCCA on the right cheek; in fact, the surgical scar is very difficult to find. Assessment and Plan: 1. 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 a. After obtaining informed patient consent, the site was anesthetized and removed with shave C and D. b. Triple antibiotic ointment and Band-Aid placed. Wound care instructions and supplies given. c. I recommended return to the clinic on a yearly basis for routine skin checkups. 2. Actinic keratosis, right cheek. a. LN2 times two applied to single actinic on right malar prominence. COPY: Mio Bro M.D. documented in this encounter Procedure Notes * Provider, Scanning - 07/26/2013 9:57 AM EDTAssociated Order(s): SCAN DOC: SURGICAL PATHOLOGY documented in this encounter Plan of Treatment Upcoming Encounters Date Type Department Care Team (Late st Contact Info) Description 01/24/2025 1:30 PM EDT Office Visit Dermatology at [address] [address] Terrance Guadarrama MD [address] [facility] [address] documented as of this encounter Procedures Procedure Name Priority Date/Time Associated Diagnosis Comments SURGICAL PATHOLOGY SCAN 07/26/2013 9:57 AM EDT documented in this encounter Results * SCAN DOC: SURGICAL PATHOLOGY (07/26/2013 9:57 AM EDT) Narrative 07/26/2013 9:57 AM EDT Procedure Note Provider, Scanning - 07/26/2013 9:57 AM EDT Scanning Provider MEDIA MGR SCAN EXT O RDR/RSLT documented in this encounter Visit Diagnoses Diagnosis Squamous cell carcinoma- Primary Other malignant neoplasm without specification of site History of basal cell carcinoma Personal history of other malignant neoplasm of skin documented in this encounter Care Teams Ed Tech Relationship Specialty Start Date End Date Mio Bro MD [address] [place] [address] PCP - General 10/09/10 08/26/17 documented as of this encounter
--- OUTSIDE RECORDS SUMMARY | 2024-08-27 19:57 | XMS_ITS | Encounter Summary ---
Author Organization [facility] [place] [address] [place] [address] Care Team Providers Care Industrial Engineering Name Role Phone Nafisa Donaldson Primary Care Provider [phone] Reason for Visit * Reason Comments Follow-up 6 mo Encounter Details Date Type Department Care Team (Late st Contact Info) Description 07/26/2024 2:00 PM EDT Office Visit Dermatology at [place] [address] [place] [id number] Terrance Guadarrama MD [address], [facility] A D[facility]MATOLOGY [place], [place] [id number] Rhinophyma; History of basal cell carcinoma; History of SCC (squamous cell carcinoma) of skin Social History Tobacco Use Types Packs/Day Years Used Date Smoking Tobacco: Former Sex and Gender Information Value Date Recorded Sex Assigned at Not on file Gender Identity Not on file Sexual Orientation Not on file documented as of this encounter Progress Notes * Terrance Guadarrama MD - 07/26/2024 2:00 PM EDT Problems: 1. Repeat skin checkup 2. History of BCCA, right lateral canthus, October 2012. 3. History of SCCA left cheek June 2013 4. History of BCCA left nasal trigone November 2023 5. 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 For the last 2 months he has had a stye on the right lower eyelid along the medial tarsal margin. His rhinophyma is doing well but he still has a fair amount of discharge and he has a pain kind of pressure feeling in his nose despite 100 mg of doxycycline a day. He states that he is getting a clear a yellowish discharge from the stye Physical examination reveals a pleasant 69-year-old gentleman who has a benign examination today ofthe head and the neck the chest the back the hands arms forearms thighs and calves. His rhinophyma remains well controlled and much improved after his procedure. He has an erythematous papule on the right medial tarsal margin consistent with a stye. There is no evidence of recurrent BCC in the leftnasal trigone. Assessment plan: Stye/chalazion cyst left lower medial tarsal margin 1. Recommend doubling the dose of doxycycline to 100 mg p.o. twice daily. Patient states that he has plenty at home prescribed by his PCP 2. I recommend he try this for 2 weeks and also observe its effect on the inflammation level of hisnose. Rhinophyma 1. Continue doxycycline but double dose to 100 mg p.o. twice daily as noted above 2. If this proves more efficacious reducing the discharge and painful pressure feeling in his nose would recommend continuing this twice daily dosing.. History of BCCA's 1. No evidence of recurrence 2. No new lesions of concern seen 3. Return to clinic in 6 months for repeat check. CC: Nafisa Donaldson. COMMUNITY THEATER ACTOR documented in this encounter Plan of Treatment Upcoming Encounters Date Type Department Care Team (Late st Contact Info) Description 01/24/2025 1:30 PM EDT Office Visit Dermatology at [place] [address] [facility] [place] [phone] Terrance Guadarrama MD [address] [facility], [place] [address] documented as of this encounter Visit Diagnoses Diagnosis Rhinophyma Rosacea History of basal cell carcinoma Personal history of other malignant neoplasm of skin History of SCC (squamous cell carcinoma) of skin Personal history of other malignant neoplasm of skin documented in this encounter Care Teams Industrial Engineering Relationship Specialty Start Date End Date Nafisa Donaldson [address] [place] [address] PCP - General Family Medicine 12/04/23 documented as of this encounter
--- OUTSIDE RECORDS SUMMARY | 2024-08-27 19:57 | XMS_ITS | Clinical Summary ---
Author Organization [facility] Address [address] [facility] [place] [address] Care Team Providers Care Architectural Draftsman Name Role Phone Nafisa Donaldson Primary Care Provider Allergies No known active allergies Medications Medication Sig Dispensed Refills Start Date End Date Status lisinopril-hydrochloro thiazide (PRINZIDE;ZESTORETIC) 10-12.5 mg per tablet Take 1 tablet by mouth daily. Active Vitamins-Lipotropics (LIPO-FLAVONOID PLUS) 200-100 mg Tab Take by mouth. Active amLODIPine (Norvasc) 10 mg tablet Take 1 tablet by mouth daily. Active cholecalciferol, Vitamin D3, 50 mcg (2,000 unit) Capsule Take 1 capsule by mouth daily. Active potassium chloride ER (Klor-Con M) 20 mEq ER micro-encapsulated crystal tablet Take 20 mEq by mouth daily. Active rivaroxaban (Xarelto) 20 mg tablet Take 1 tablet by mouth daily. 08/28/2023 Active enalapriL (Vasotec) 20 mg tablet Take 40 mg by mouth daily. Active hydroCHLOROthiazide (Hydrodiuril) 50 mg tablet Take 50 mg by mouth daily. Active Doxycycline Hyclate (Doryx) [address] tablet Take 100 mg by mouth daily. Active Active Problems Problem Noted Date Diagnosed Date Squamous cell carcinoma 07/16/2013 History of basal cell carcinoma 07/16/2013 Visit for suture removal 04/23/2012 Basal cell carcinoma 04/02/2012 Encounters Date Type Department Care Team Description 07/26/2024 2:00 PM EDT Office Visit Dermatology at [address] [place] [address] Terrance Guadarrama MD Rhinophyma; History of basal cell carcinoma; History of SCC (squamous cell carcinoma) of skin 07/26/2024 Travel from Last 3 Months Social History Tobacco Use Types Packs/Day Years Used Date Smoking Tobacco: Former Sex and Gender Information Value Date Recorded Sex Assigned at Not on file Gender Identity Not on file Sexual Orientation Not on file Plan of Treatment Upcoming Encounters Date Type Department Care Team (Late st Contact Info) Description 01/24/2025 1:30 PM EDT Office Visit Dermatology at [place] [address] [place] [address] Terrance Guadarrama MD [address], [place] [address] Health Maintenance Due Date Last Done Comments CT Colonography 1953 Colonoscopy 1953 Colorectal Cancer Screening 1953 FIT DNA 1953 FIT 1953 Sigmoidoscopy (10 year) with FIT yearly 1953 Sigmoidoscopy 1953 Hepatitis C Screening 1971 Lipid Screening 1971 Tetanus/Diphtheria/Pertussis Vaccines (1 - Tdap) 03/27 Zoster vaccine (1 of 2) 2003 Advance Directive 2008 AAA Screen 2018 Pneumoccocal Vaccine: 65+ (1 of 1 - PCV) 2018 Covid-19 Vaccine (1 - 2022-24 season) 2024 Influenza (Flu) vaccine (1 o f 1 - Influenza standard series) 07/18/2024 Care Teams Architectural Draftsman Relationship Specialty Start Date End Date Nafisa Donaldson [address] [place], [place] [id number] PCP - General Family Medicine 12/04/23
--- OUTSIDE RECORDS SUMMARY | 2024-08-27 19:57 | XMS_ITS | Encounter Summary ---
Author Organization [facility] [place] [address] Care Team Providers Care Recruiting Intern Name Role Phone Mio Bro MD Primary Care Provider + Reason for Visit * Reason Comments Skin Check Encounter Details Date Type Department Care Team (Late st Contact Info) Description 04/02/2012 9:30 AM EDT Office Visit Dermatology [address] [place] [address] Terrance Guadarrama MD [address], [place] [address] Basal cell carcinoma (Primary Dx) Social History Tobacco Use Types Packs/Day Years Used Date Smoking Tobacco: Former Sex and Gender Information Value Date Recorded Sex Assigned at Not on file Gender Identity Not on file Sexual Orientation Not on file documented as of this encounter Progress Notes * Terrance Guadarrama MD - 04/02/2012 10:04 AM EDT Problem: Right inferolateral canthal lesion. Freedom is a 57-year-old gentleman who is referred today by Dr. Bro for evaluation of a roughly das-bra-e-half year history of a growing pearly nodule on the right face. Occasionally it bleeds. 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 He runs this with his son. His medications are limited and include only lisinopril/hydrochlorothiazide and a baby aspirin a day. Physical examination reveals a pleasant 57-year-old gentleman who has a 1-cm, pearly nodule on the right cheek just inferior to the right lateral canthus on the zygoma area. The rest of the facial examination is unremarkable. Assessment and Plan: BCCA. a. Discussed diagnosis. b. Reassured the patient that this will not metastasize but can be surgically cured. c. We will schedule an appointment for excision of this in the near future. d. I asked the patient to hold his baby aspirin for one week prior to the scheduled surgery date. I also asked him to let his son run the business route for the first day postoperatively before Filiberto gets back into working. Discussed postoperative wound care. Copy: Mio Bro M.D. documented in this encounter Plan of Treatment Upcoming Encounters Date Type Department Care Team (Late st Contact Info) Description 01/24/2025 1:30 PM EDT Office Visit Dermatology at [place] [address] [place] [address] Terrance Guadarrama MD [address] [facility], [place] [address] documented as of this encounter Visit Diagnoses Diagnosis Basal cell carcinoma- Primary Basal cell carcinoma of skin, site unspecified documented in this encounter Care Teams Recruiting Intern Relationship Specialty Start Date End Date Mio Bro MD [address] [place] [address] PCP - General 10/09/10 08/26/17 documented as of this encounter
--- OUTSIDE RECORDS SUMMARY | 2024-08-27 19:57 | XMS_ITS | Encounter Summary ---
Author Organization [facility] [place] [address] Care Team Providers Care Destaticizer Feeder Name Role Phone Nafisa Donaldson Primary Care Provider [phone] Encounter Details Date Type Department Care Team (Latest Contact Info) Description 12/09/2023 Travel Social History Tobacco Use Types Packs/Day [...] 1:30 PM EDT Office Visit Dermatology at [place] [address] [place] [phone] Terrance Guadarrama MD [address], [place] [address] documented as of this encounter Visit Diagnoses Not on filedocumented in this encounter Care Teams Destaticizer Feeder Relationship Specialty Start Date End Date Nafisa Donaldson [address] [place] [address] PCP - General Family Medicine 12/04/23 documented as of this encounter
--- OUTSIDE RECORDS SUMMARY | 2024-08-27 19:57 | XMS_ITS | Encounter Summary ---
Author Organization [facility] Address [address] [place] [address] Care Team Providers Care Proj Mgr Name Role Phone Unavailable Primary Care Provider Unavailabl e Encounter Details Date Type Department Care Team (Late st Contact Info) Description 06/15/2013 Results Only [facility] [phone] Iglesia Mancini MD [address] [address] Social History Tobacco Use Types Packs/Day Years Used Date Smoking Tobacco: Never Assessed Sex and Gender Information Value Date Recorded Sex Assigned at Not on file Gender Identity Not on file Sexual Orientation Not on file documented as of this encounter Plan of Treatment Not on file documented as of this encounter Procedures Procedure Name Priority Date/Time Associated Diagnosis Comments SURGICAL PATHOLOGY Routine 06/15/2013 8:26 EDT documented in this encounter Results * SURGICAL PATHOLOGY (06/15/2013 8:26 EDT) Pathology Report: SURGICAL PATHOLOGY REPORT Reports generated via electronic interface contain original data; however they are lacking the format of the original report. Caution should be taken when reading/interpreti ng unformatted reports. Name: ? ARIEL ROMERO ? Accession #: ? [id number] ? : ? 1955 (Age: 58) ??M ? Collect Date: ? 06/15/2013 ? Location: ? [facility] ? Receive Date: ? 06/16/2013 ? Provider: IGLESIA MANCINI MD Copy to: JOSTIN ARANDA MD ? Final Pathologic Diagnosis: A. PROSTATE, RIGHT LATERAL APEX, NEEDLE CORE BIOPSY (3 PIECES): - ??Prostatic tissue with focal atrophy and acute inflammation. - ??Squamous mucosa and fibromuscular tissue with no specific histopathologic diagnosis. B. PROSTATE, RIGHT MEDIAL APEX, NEEDLE CORE BIOPSY (3 PIECES): - ??Prostatic tissue with no specific histopathologic diagnosis. - ??Squamous mucosa and fibromuscular tissue with no specific histopathologic diagnosis. C. PROSTATE, RIGHT LATERAL MID, NEEDLE CORE BIOPSY (2 PIECES): - ??Predominantly fibromuscular tissue with one benign glandular tissue. D. PROSTATE, RIGHT MEDIAL MID, NEEDLE CORE BIOPSY (2 PIECES): - ??Prostatic tissue with focal mild atrophy. - ??Squamous mucosa with no specific histopathologic diagnosis. - ??Stromal tissue with focal acute inflammation. E. PROSTATE, RIGHT LATERAL BASE, NEEDLE CORE BIOPSY (2 PIECES): - ??Prostatic tissue with focal atrophy. - ??Squamous mucosa and stromal tissue with no specific histopathologic diagnosis. F. PROSTATE, RIGHT MEDIAL BASE, NEEDLE CORE BIOPSY (2 PIECES): - ??Prostatic tissue with focal mild chronic inflammation and atrophy. - ??Colorectal mucosa with no specific histopathologic diagnosis. G. PROSTATE, LEFT LATERAL APEX, NEEDLE CORE BIOPSY (2 PIECES): - ??Prostatic tissue with no specific histopathologic diagnosis. - ??Colorectal mucosa with no specific histopathologic diagnosis. H. PROSTATE, LEFT MEDIAL APEX, NEEDLE CORE BIOPSY (2 PIECES): - ??Prostatic tissue with focal atrophy and acute and chronic inflammation. - ??Colorectal mucosa with no specific histopathologic diagnosis. I. PROSTATE, LEFT LATERAL MID, NEEDLE CORE BIOPSY (2 PIECES): - ??Prostatic tissue with focal atrophy. J. PROSTATE, LEFT MEDIAL MID, NEEDLE CORE BIOPSY (2 PIECES): - ??Prostatic tissue with focal atrophy. - ??Colorectal mucosa with no specific histopathologic diagnosis. K. PROSTATE, LEFT LATERAL BASE, MEDICAL BIOPSY (2 PIECE): - ??Prostatic tissue with atrophy, chronic inflammation and focal basal cell hyperplasia. - ??Colorectal mucosa with no specific histopathologic diagenos. L. PROSTATE, LEFT MEDIAL BASE, NEEDLE CORE BIOPSY (2 PIECE): - ??Prostatic tissue with focal atrophy. - ??Colorectal mucosa with no specific histopathologic diagnosis. Document reviewed and electronically signed by: Wallace Cardoza MD Report ??Date: 06/17/2013 11:28 By the signature above, the attending physician certifies that he/she has personally conducted a gross and/or microscopic examination of the described specimens and rendered or confirmed the above diagnosis. Specimen(s) Received: A. ??Rt lat apex B. ??Rt med apex C. ??Rt lat mid D. ??Rt med mid E. ??Rt lat base F. ??Rt med base G. ??Lt lat apex H. ??Lt med apex I. ?? Lt lat mid J. ??Lt med mid K. ??Lt lat base L. ??Lt med base Clinical History: Elevated PSA; TRUS bx prostate Gross Description: A. ?Received in formalin labelled with proper patient identification (initials H., F.) and right lateral apex are three clay-white tissue cores (0.2 cm to 0.7 cm in length, and each 0.1 cm in diameter). Entirely submitted in A1. B. ?Received in formalin labelled with proper patient identification (initials H., F.) and right medial apex are three clay-white tissue cores (0.2 cm to 0.9 cm in length, and each 0.1 cm in diameter). Entirely submitted in B1. C. ?Received in formalin labelled with proper patient identification (initials H., F.) and right lateral mid are two lcay-white tissue cores (0.4 cm and 0.7 cm in length, and each 0.1 cm in diameter). Entirely submitted in C1. D. ?Received in formalin labelled with proper patient identification (initials H., F.) and right medial mid are two clay-white tissue cores (0.8 cm and 0.9 cm in length, and each 0.1 cm in diameter). Entirely submitted in D1. E. ?Received in formalin labelled with proper patient identification (initials H., F.) and right lateral base are two clay-white tissue cores (0.4 cm and 0.5 cm in length, and each 0.1 cm in diameter). Entirely submitted in E1. F. ?Received in formalin labelled with proper patient identification (initials H., F.) and right medial base is a single clay-white tissue core (1.0 cm in length x 0.1 cm in diameter). Submitted intact in F1. G. ?Received in formalin labelled with proper patient identification (initials H., F.) and left lateral apex are two clay-white tissue cores (0.5 cm and 0.9 cm in length, and each 0.1 cm in diameter). Entirely submitted in G1. H. ?Received in formalin labelled with proper patient identification (initials H., F.) and left medial apex is a single clay-white tissue core (1.4 cm in length x 0.1 cm in diameter). Submitted intact in H1. I. ?Received in formalin labelled with proper patient identification (initials H., F.) and left lateral mid are two clay-white tissue cores (0.3 cm and 1.1 cm in length, and each 0.1 cm in diameter). Entirely submitted in I1. J. ?Received in formalin labelled with proper patient identification (initials H., F.) and left medial mid are two clay-white tissue cores (0.5 cm and 1.6 cm in length, and each 0.1 cm in diameter). Entirely submitted in J1. K. ?Received in formalin labelled with proper patient identification (initials H., F.) and left lateral base are two clay-white tissue cores (0.2 cm and 0.8 cm in length, and each 0.1 cm in diameter). Entirely submitted in K1. L. ?Received in formalin labelled with proper patient identification (initials H., F.) and left medial base are two clay-white tissue cores (0.2 cm and 1.0 cm in length, and each 0.1 cm in diameter). Entirely submitted in L1Raine Peralta 06/16/2013 09:03 AM End of Report [facility] 06/15/2013 8:26 EDT 06/16/2013 8:26 EDT Iglesia Mancini MD PATHOLOGY ORDERABLES [facility] [address] [place] [address] documented in this encounter Visit Diagnoses Not on filedocumented in this encounter
--- OUTSIDE RECORDS SUMMARY | 2024-08-27 19:57 | XMS_ITS | Encounter Summary ---
Author Organization [facility] Address [address] [place] [address] Care Team Providers Care State Federal Relations Deputy Director Name Role Phone Mio Bro MD Primary Care Provider Booker claros Encounter Details Date Type Department Care Team (Late st Contact Info) Description 10/23/2023 Lab Requisition [facility] Pathology & Laboratory Medicine - [facility] [address] [place] [address] Outr Resulting Lab, Provider Social History Tobacco [...] Associated Diagnosis Comments PSA TOTAL, DIAGNOSTIC Routine 10/23/2023 14:52 EST documented in this encounter Results * PSA TOTAL, DIAGNOSTIC (10/23/2023 14:52 EST) PSA 5.9 <=6.5 ng/mL 10/23/2023 22:06 EST [facility] Blood VENOUS BLOOD / Unknown 10/23/2023 14:52 EST 10/23/2023 21:28 EST Narrative [facility] - 10/23/2023 22:06 EST NOTE: Serum PSA concentration should not be interpreted as absolute evidence for the presence or absence of malignant disease. Assayed on Siemens ADVIA Centaur XPT using chemiluminescent technology.??Values obtained by using different assay methods cannot be used interchangeably. Provider Outr Resulting Lab CHEMISTRY & BLOOD GAS ORDERABLES [facility] [address] [place] [address] documented in this encounter Visit Diagnoses Not on filedocumented in this encounter Care Teams State Federal Relations Deputy Director Relationship Specialty Start Date End Date Mio Bro MD PCP - General 06/18/13 documented as of this encounter
--- OUTSIDE RECORDS SUMMARY | 2024-08-27 19:57 | XMS_ITS | Encounter Summary ---
Author Organization [facility] Address [address] [place] [address] Care Team Providers Care Soup Mixer Name Role Phone Mio Bro MD Primary Care Provider Booker claros Encounter Details Date Type Department Care Team (Late st Contact Info) Description 08/27/2024 Lab Requisition [facility] Pathology & Laboratory Medicine - [address] [address] Outr Resulting Lab, Provider Social History Tobacco [...] as of this encounter Plan of Treatment Scheduled Orders Name Type Priority Associated Diagnoses Orde r Schedule PSA TOTAL, DIAGNOSTIC Lab Routine Ord ered: 08/27/2024 documented as of this encounter Visit Diagnoses Not on filedocumented in this encounter Care Teams Soup Mixer Relationship Specialty Start Date End Date Mio Bro MD PCP - General 06/18/13 documented as of this encounter
--- OUTSIDE RECORDS SUMMARY | 2024-08-27 19:57 | XMS_ITS | Encounter Summary ---
Author Organization [facility] [place] [address] Care Team Providers Care Dimension Warehouse Supervisor Name Role Phone Nafisa Donaldson Primary Care Provider [phone] Encounter Details Date Type Department Care Team (Latest Contact Info) Description 12/25/2023 Travel Social History Tobacco Use Types Packs/Day [...] 1:30 PM EDT Office Visit Dermatology at [place] [address] [place] [id number] Terrance Guadarrama MD [address], [place] [address] documented as of this encounter Visit Diagnoses Not on filedocumented in this encounter Care Teams Dimension Warehouse Supervisor Relationship Specialty Start Date End Date Nafisa Donaldson [address] [place] [address] PCP - General Family Medicine 12/04/23 documented as of this encounter
--- OUTSIDE RECORDS SUMMARY | 2024-08-27 19:57 | XMS_ITS | Encounter Summary ---
Author Organization [facility] [place] [address] Care Team Providers Care Risk Professional Name Role Phone Nafisa Donaldson Primary Care Provider [phone] Reason for Visit * Reason Comments Follow-up * Consultation (Routine) - Closed Specialty Diagnoses / Procedures Referred By Barbie larsen Referred To Contact Dermatology Diagnoses Personal history of other malignant neoplasm of skin Nafisa Donaldson [address] [place] [address] Terrance Guadarrama MD [address] [place] [address], [facility] [place] [address] Referral ID Status Reason Start Date Expiration Date Visits Re quested Visits Authorized [id number] Closed 11/28/2023 11/27/2024 1 1 Encounter Details Date Type Department Care Team (Late st Contact Info) Description 12/04/2023 9:45 AM EST Office Visit Dermatology at [address] [phone] Terrance Guadarrama MD [address] [facility], [facility] A DERMATOLOGY [place], [place] [id number] History of basal cell carcinoma; History of SCC (squamous cell carcinoma) of skin Social History Tobacco Use Types Packs/Day Years Used Date Smoking Tobacco: Former Sex and Gender Information Value Date Recorded Sex Assigned at Not on file Gender Identity Not on file Sexual Orientation Not on file documented as of this encounter Progress Notes * Terrance Guadarrama MD - 12/04/2023 9:45 AM EST Problems: 1. Eyelid lesion of concern. 2. History of BCCA, right lateral canthus, October 2012. 3. 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 He has a BCC present on the right nasal trigone. He has no evidence of SCC or BCC at the current at the above-noted prior treatment sites. Assessment plan: Rhinophyma nose 1. Discussed with patient the correction of this. 2. Patient is currently on doxycycline prescribed by Nafisa Donaldson. Continue this 100 mg a day. 3. We will plan a 60-minute appointment for treatment of this. BCCA, probable right nasal trigone 1. Today site was anesthetized and removed with shave C&D 2. After curettage site measured 1 cm in diameter 3. Wound care instructions and supplies given CC: Nafisa Donaldson. MAGNET MAKER documented in this encounter Plan of Treatment Upcoming Encounters Date Type Department Care Team (Late st Contact Info) Description 01/24/2025 1:30 PM EDT Office Visit Dermatology at [address] [phone] Terrance Guadarrama MD [address] [facility], [place] [address] documented as of this encounter Visit Diagnoses Diagnosis History of basal cell carcinoma Personal history of other malignant neoplasm of skin History of SCC (squamous cell carcinoma) of skin Personal history of other malignant neoplasm of skin documented in this encounter Care Teams Risk Professional Relationship Specialty Start Date End Date Nafisa Donaldson [address] [place] [address] PCP - General Family Medicine 12/04/23 documented as of this encounter
--- OUTSIDE RECORDS SUMMARY | 2024-08-27 19:57 | XMS_ITS | Encounter Summary ---
Author Organization [place] [address] Care Team Providers Care Sports Instructor Name Role Phone Mio Bro MD Primary Care Provider + Reason for Visit * Reason Comments Suture / Staple Removal Encounter Details Date Type Department Care Team (Late st Contact Info) Description 04/23/2012 9:45 AM EDT Office Visit Dermatology [address] [facility] [address] [place] [address] Terrance Guadarrama MD [address], [place] [address] Visit for suture removal (Primary Dx) Social History Tobacco Use Types Packs/Day Years Used Date Smoking Tobacco: Former Sex and Gender Information Value Date Recorded Sex Assigned at Not on file Gender Identity Not on file Sexual Orientation Not on file documented as of this encounter Progress Notes * Terrance Guadarrama MD - 04/23/2012 10:12 AM EDT Problem: Followup for suture removal and biopsy results. Filiberto follows up and did well postoperatively. He had no discomfort, pain, and no bleeding. Physical examination reveals excellent healing of the right lateral canthal BCCA site. The biopsy did show clear margins. Assessment and Plan: BCCA, right lateral canthus, excised March 2012. a. Sutures are removed. b. May discontinue wound care instructions. c. Discussed appropriate care of the skin of this area for the next month. I recommended sunscreen and wearing a broad-rimmed hat. d. Return to the clinic here for new lesions/concerns. Copy: Mio Bro M.D. documented in this encounter Plan of Treatment Upcoming Encounters Date Type Department Care Team (Late st Contact Info) Description 01/24/2025 1:30 PM EDT Office Visit Dermatology at [place] [address] [facility] [place] [address] Terrance Guadarrama MD [address], [place] [address] documented as of this encounter Visit Diagnoses Diagnosis Visit for suture removal- Primary Encounter for removal of sutures documented in this encounter Care Teams Sports Instructor Relationship Specialty Start Date End Date Mio Bro MD [address] [place] [address] PCP - General 10/09/10 08/26/17 documented as of this encounter
[2024-08-27 22:46] LABS: PSA, Diagnostic 5.8 ng/mL (<=6.5)
== END 2024-08-27 19:56 | disposition home or self-care (01) ==
LOC: NCHCN 19:55
PROVIDERS: Visit Provider Nurse Practitioner Family
DX: R73.03 Prediabetes (principal); I48.91 Unspecified atrial fibrillation
CPT/HCPCS: 80048; 85027; 83036; 84153; 84443

== ENCOUNTER → 2025-01-13 10:46 | Outpatient (BNVA) | payer MEDICARE, SELFPAY | PROVIDERS: Visit Provider Internal Medicine Cardiovascular Disease | DX: I48.21 Permanent atrial fibrillation (principal); I10 Essential (primary) hypertension | CPT/HCPCS: 99213 ==

== ENCOUNTER 2025-09-23 12:37 | Outpatient (REF) | payer MEDICARE, OTHER, SELFPAY ==
[2025-09-23 16:15] LABS: ALT 29 U/L (16-63); AST 17 U/L (15-37); Albumin 4.1 g/dL (3.4-5.0); Alkaline Phosphatase 97 U/L (46-116); Anion Gap 10.0 mmol/L (3-11); BUN 21 mg/dL (7-18); Bilirubin, Total 0.8 mg/dL (0.2-1.0); CO2 27.0 mmol/L (21.0-32.0); Calcium 8.8 mg/dL (8.5-10.1); Chloride 104 mmol/L (98-107); Glucose 119 mg/dL (74-106); Potassium 3.7 mmol/L (3.5-5.1); Sodium 141 mmol/L (136-145); Total Protein 6.9 g/dL (6.4-8.2)
[2025-09-23 17:00] LABS: Hemoglobin A1C 6.0 % (<5.7)
[2025-09-23 22:43] LABS: PSA, Screening 5.9 ng/mL (<=6.5)
== END 2025-09-23 12:38 | disposition home or self-care (01) ==
LOC: NCHCN 12:37
PROVIDERS: PCP Nurse Practitioner Family; Visit Provider Nurse Practitioner Family
DX: R73.03 Prediabetes (principal); N40.1 Benign prostatic hyperplasia with lower urinary tract symptoms; I10 Essential (primary) hypertension
CPT/HCPCS: 80053; 84153; 83036